=== PATIENT | female | born 1985 | race Caucasian/White ===

== ENCOUNTER 2017-02-28 23:41 | Emergency (ER) | payer MEDICARE ==
[~2017-02-28] VITALS: Ht 177.8 cm; Wt 70.5 kg
[~2017-02-28 23:41] MED LIST: CIPR500T4 PO; LORTA5 PO; SERO200T PO; TRAZ50TA4 PO; Z.0.BCPILL PO
[2017-02-28 23:42] VITALS: BP 161/69; PULSE 114; RESP 16; TEMP 98.8; O2SAT 98
[2017-03-01] MEDS ORDERED: TRAZ1TAB45 PO (00:10)
[2017-03-01] MEDS ORDERED: ALPR1TAB3 PO (00:10)
[2017-03-01] MEDS ORDERED: SERO400T PO (00:10)
[2017-03-01] MEDS ORDERED: MOBI15TA PO (00:39)
[2017-03-01] MEDS ORDERED: CLIN1CAP5 PO (00:39)
[2017-03-01] MEDS ORDERED: BACT800T5 PO (00:39)
[2017-03-01] MEDS ORDERED: MUPIROCIN TOPICAL (00:40)
--- NOTE | 2017-03-01 00:41 | PD ---
HPI Chief Complaint: Skin Problem Time Seen by Provider: 00:27 Travel History International Travel<30 days: No Contact w/Intl Traveler<30days: No Traveled to known affect area: No History of Present Illness HPI 31-year-old female complains of infected lesions on the right arm and right hand and the chin. Patient states that the symptoms started several days ago. Patient states that she has recurrent infection several times in the past several months. Patient denies any history IV drug abuse. Patient denies any fever chills. Patient states that the redness is increased on the lesions on the right forearm. Patient states that she has some drainage from the right wrist area. Patient is not up-to-date with TD booster. PFSH Past Medical History Hx Anticoagulant Therapy: No Bipolar Disorder: Yes Anxiety: Yes Depression: Yes Cardiovascular Problems: No Chemotherapy: No Cerebrovascular Accident: No Diabetes: No Patient Takes Glucophage: No Diminished Hearing: No Genitourinary: Yes (frequent UTI's) Respiratory: No Immunizations Current: Yes Tetanus Vaccination: > 5 Years Influenza Vaccination: No ?: Not LMP: 02/02/17 Social History Alcohol Use: Yes (occ) Tobacco Use: Yes (1/2 PPD) Substance Use: Yes Allergies-Medications (Allergen,Severity, Reaction): Coded Allergies: No Known Allergies (Unverified , 03/01/17) Reported Meds & Prescriptions Reported Meds & Active Scripts Active [Bactroban Oinment] 1 Applic TOPICAL BID Mobic (Meloxicam) 15 Mg Tab 15 Mg PO DAILY Clindamycin (Clindamycin HCl) 150 Mg Cap 2 Tab PO Q6H Bactrim DS (Sulfamethoxazole-Trimethoprim) 800-160 Mg Tab 1 Tab PO BID Reported Seroquel (Quetiapine Fumarate) 400 Mg Tab 400 Mg PO HS Alprazolam 1 Mg Tab 1 Mg PO Q6H PRN Trazodone (Trazodone HCl) 150 Mg Tablet 150 Mg PO HS Review of Systems General / Constitutional: No: Fever Eyes: No: Visual changes HENT: No: Headaches Cardiovascular: No: Chest Pain or Discomfort Respiratory: No: Shortness of Breath Gastrointestinal: No: Abdominal Pain Genitourinary: No: Dysuria Musculoskeletal: No: Pain Skin: No Rash Neurologic: No: Weakness Psychiatric: No: Depression Endocrine: No: Polydipsia Hematologic/Lymphatic: No: Easy Bruising Physical Exam Narrative GENERAL: Well-nourished, well-developed patient. SKIN: Focused skin assessment warm/dry. HEAD: Normocephalic. EYES: No scleral icterus. No injection or drainage. NECK: Supple, trachea midline. No JVD or lymphadenopathy. CARDIOVASCULAR: Regular rate and rhythm without murmurs, gallops, or rubs. RESPIRATORY: Breath sounds equal bilaterally. No accessory muscle use. GASTROINTESTINAL: Abdomen soft, non-tender, nondistended. MUSCULOSKELETAL: No cyanosis, or edema. BACK: Nontender without obvious deformity. No CVA tenderness. Patient had multiple crusted lesions on the right hand and right forearm. Patient has a crusted lesion on her chin. Patient has redness swelling and some mild discharge from the lesion on the right wrist. Data Data Last Documented VS Vital Signs Date Time Temp Pulse Resp B/P Pulse Ox O2 Delivery O2 Flow Rate FiO2 02/28/17 23:42 98.8 114 16 161/69 98 Room Air Orders Tetanus/Diphtheria Tox Adult (Tetanus/Di (03/01/17 00:45) Clindamycin Inj (Cleocin Inj) (03/01/17 00:45) Wound Culture And Gram Stain (03/01/17 00:42) MDM Medical Decision Making Medical Screen Exam Complete: Yes Emergency Medical Condition: Yes Differential Diagnosis Differential diagnosis including cellulitis, abscess. Narrative Course 31-year-old female with infected lesions and cellulitis on the right hand and right forearm. TD booster given. Clindamycin 600 mg IM. Diagnosis Primary Impression: Cellulitis Qualified Code: L03.113 - Cellulitis of right upper extremity Patient Instructions: General Instructions Additional Instructions: Take medications as directed. Soap water wash lesions daily. Follow-up with local physician. Return if worse. Med/Other Pt SpecificInfo: Prescription(s) given Scripts [Bactroban Oinment] No Conflict Check1 Applic TOPICAL BID #1 Prov:Simone Klein MD 03/01/17 Meloxicam (Mobic)15 Mg Tab15 Mg PO DAILY #20 TAB Prov:Simone Klein MD 03/01/17 Clindamycin 150 Mg Cap2 Tab PO Q6H #80 CAP Prov:Simone Klein MD 03/01/17 Sulfamethoxazole-Trimethoprim (Bactrim DS)800-160 Mg Tab1 Tab PO BID #20 TAB Prov:Simone Klein MD 03/01/17 Disposition: 01 DISCHARGE HOME Condition: Stable Simone Klein MD Mar 01, 2017 00:41
[2017-03-01] MEDS ORDERED: CLINDAMYCIN PHOS 600 MG/4 ML VIAL IM ONE (00:45)
[2017-03-01] MEDS ORDERED: TETANUS/DIPHTHERIA TOXOID ADULT 0.5 ML VIAL IM ONE (00:45)
== END 2017-03-01 01:49 | disposition home or self-care (01) ==
LOC: NEPC 23:41
DX: L03.113 Cellulitis of right upper limb (principal); B95.62 Methicillin resistant Staphylococcus aureus infection as the cause of diseases classified elsewhere; F17.200 Nicotine dependence, unspecified, uncomplicated; Z23 Encounter for immunization
CPT/HCPCS: 86403; 87070; 87186; 90471; 90714; 96372

== ENCOUNTER 2017-09-22 01:23 | Emergency (ER) | payer MEDICARE, OTHER ==
[~2017-09-22] VITALS: Ht 177.8 cm; Wt 63.6 kg
[~2017-09-22 01:23] MED LIST changes: +ALPR1TAB3 PO; +BACT800T5 PO; -CIPR500T4 PO; +CLIN150C14 PO; -LORTA5 PO; +MOBI15TA PO; +MUPIROCIN TOPICAL; -SERO200T PO; +SERO400T PO; +TRAZ1TAB14 PO; -TRAZ50TA4 PO; -Z.0.BCPILL PO
[2017-09-22 01:34] VITALS: BP 110/62; PULSE 105; RESP 20; TEMP 99.2; O2SAT 98
[2017-09-22] MEDS ORDERED: BACT800T5 PO (02:18)
--- NOTE | 2017-09-22 02:25 | PD ---
HPI Chief Complaint: Psychiatric Symptoms Time Seen by Provider: 01:56 Travel History International Travel<30 days: No Contact w/Intl Traveler<30days: No Traveled to known affect area: No History of Present Illness HPI 32-year-old white female with history IV drug abuse presents to emergency department are [facility]. Patient was found sleeping in the bathroom of a restaurant with IV drug paraphernalia around her. The patient had been injecting IV heroin. The patient was brought to the ER for evaluation. The patient here is alert now. She admits to substance abuse. She denies any medical complaints other than pain in her left great toe which she sustained from stepping on something earlier today. She has not had a tetanus shot over 5 years. She denies any toxic ingestions. She denies any suicidal homicidal ideation. PFSH Past Medical History Narrative Medical Anxiety, depression, IV drug abuse Hx Anticoagulant Therapy: No Bipolar Disorder: Yes Anxiety: Yes Depression: Yes Cardiovascular Problems: No Chemotherapy: No Cerebrovascular Accident: No Diabetes: No Diminished Hearing: No Genitourinary: Yes (frequent UTI's) Psychiatric: Yes Respiratory: No Immunizations Current: Yes Tetanus Vaccination: > 5 Years Influenza Vaccination: No ?: Not LMP: 6 months ago Past Surgical History Surgical History: No Previous Surgery Social History Alcohol Use: Yes (occ) Tobacco Use: Yes (1/2 PPD) Substance Use: Yes (opiates and cocaine) Allergies-Medications (Allergen,Severity, Reaction): Coded Allergies: *MDRO Multi-Drug Resistant Organism (Verified Adverse Reaction, Unknown, ) MRSA (am) 03/01/17 Reported Meds & Prescriptions Reported Meds & Active Scripts Active Bactrim DS (Sulfamethoxazole-Trimethoprim) 800-160 Mg Tab 1 Tab PO BID [Bactroban Oinment] 1 Applic TOPICAL BID Mobic (Meloxicam) 15 Mg Tab 15 Mg PO DAILY Clindamycin (Clindamycin HCl) 150 Mg Cap 2 Tab PO Q6H Bactrim DS (Sulfamethoxazole-Trimethoprim) 800-160 Mg Tab 1 Tab PO BID Reported Seroquel (Quetiapine Fumarate) 400 Mg Tab 400 Mg PO HS Alprazolam 1 Mg Tab 1 Mg PO Q6H PRN Trazodone (Trazodone HCl) 150 Mg Tablet 150 Mg PO HS Review of Systems Except as stated in HPI: all other systems reviewed are Neg Musculoskeletal: Positive: Pain (left great toe) Skin: Positive Rash Psychiatric: Positive: Anxiety, Depression, Substance Abuse, No: Suicidal Ideations, Disorder of Thought, Mood Disorder, Homicidal Ideation Physical Exam Narrative GENERAL: Well-nourished, well-developed patient. SKIN: Warm and dry. Patient has multiple sores from picking on her face, extremities and trunk. Positive track rodriguez. Patient has a abrasion with some swelling to the left great toe over pad. No abscess. HEAD: Normocephalic and atraumatic. EYES: No scleral icterus. No injection or drainage. ENT: No nasal drainage noted. Mucous membranes pink. Airway patent. NECK: Supple, trachea midline. Moves head freely without obvious discomfort. CARDIOVASCULAR: Regular rate and rhythm without murmurs, gallops, or rubs. RESPIRATORY: Breath sounds equal bilaterally. No accessory muscle use. GASTROINTESTINAL: Abdomen soft, non-tender, nondistended. EXTREMITIES: No cyanosis or edema. BACK: Nontender without obvious deformity. No CVA tenderness. NEURO: Patient is alert and oriented. no sensorimotor deficits. Nonfocal. Normal speech. PSYCH: No delusions. No auditory or visual hallucinations. Data Data Last Documented VS Vital Signs Date Time Temp Pulse Resp B/P (MAP) Pulse Ox O2 Delivery O2 Flow Rate FiO2 09/22/17 01:34 99.2 105 20 110/62 (78) 98 Orders Orders Tetanus/Diphtheria Tox Adult (Tetanus/Di (09/22/17 02:30) Sulfamet-Trimeth Ds 800-160 Mg (Bactrim (09/22/17 02:30) MDM Medical Decision Making Medical Screen Exam Complete: Yes Emergency Medical Condition: Yes Medical Record Reviewed: Yes Differential Diagnosis Differential diagnoses: Alcohol intoxication, substance abuse, electrolyte abnormality, malingering Narrative Course Patient's tetanus status updated. Patient is given Bactrim DS by mouth. Her wound is cleansed and dressed. The patient is been medically cleared. The patient will be discharged at 6:30 this morning. She is eating sirena crackers and drinking juice. This is drug abuse, left great toe abrasion Diagnosis Primary Impression: IV drug abuse Additional Impression: left great toe contusion Patient Instructions: General Instructions Additional Instructions: Rest. Increase fluids. Bactrim DS. Avoid alcohol. Avoid illegal substances. Follow-up with [facility] for detox. Do not operate a car or any heavy machinery under the influence of alcohol or drugs. Follow-up with a medical doctor this week. Return to the ER for emergencies Med/Other Pt SpecificInfo: Prescription(s) given, Wound Care Scripts Sulfamethoxazole-Trimethoprim (Bactrim DS) 800-160 Mg Tab 1 TAB PO BID for Infection, #20 TAB 0 Refills Prov: Anastasia Sullivan MD 09/22/17 Disposition: 01 DISCHARGE HOME Condition: Stable Sanchez Quesada Sep 22, 2017 02:25
[2017-09-22] MEDS ORDERED: SULFAMETHOXAZOLE-TRIMETHOPRIM DS 800-160 MG TAB PO ONE (02:30)
[2017-09-22] MEDS ORDERED: TETANUS/DIPHTHERIA TOXOID ADULT 0.5 ML VIAL IM ONE (02:30)
== END 2017-09-22 06:55 | disposition home or self-care (01) ==
LOC: NEPD 01:23
DX: F11.10 Opioid abuse, uncomplicated (principal); S90.112A Contusion of left great toe without damage to nail, initial encounter; F31.9 Bipolar disorder, unspecified; F17.210 Nicotine dependence, cigarettes, uncomplicated; Z23 Encounter for immunization
CPT/HCPCS: 90471; 90714

== ENCOUNTER 2017-10-19 23:41 | Observation (INO) | payer MEDICARE, OTHER ==
[~2017-10-19] VITALS: Ht 177.8 cm; Wt 70.0 kg
[2017-10-20 00:45] VITALS: BP 148/88; PULSE 114; RESP 18; TEMP 101; O2SAT 95
[2017-10-20] MEDS ORDERED: ACETAMINOPHEN 325 MG TAB PO ONE (09:30)
[2017-10-20] MEDS ORDERED: LIDOCAINE HCL 1% 50 ML VIAL INFIL ONE (09:30)
[2017-10-20] MEDS ORDERED: KETOROLAC TROMETHAMINE 30 MG/ML (IVP) VIAL IVP ONE (09:30)
[2017-10-20] MEDS ORDERED: CLINDAMYCIN INJ 600 MG in SODIUM CHLORIDE 0.9% INJ 100 ML IV ONE (09:30)
[2017-10-20] MEDS ORDERED: SODIUM CHLOR 0.9% 1000 ML INJ 1,000 ML IV ONE (09:30)
--- NOTE | 2017-10-20 09:36 | PD ---
HPI Chief Complaint: Skin Problem Time Seen by Provider: 09:12 Travel History International Travel<30 days: No Contact w/Intl Traveler<30days: No Traveled to known affect area: No History of Present Illness HPI 32yo F with PMH of anxiety, depression, IVDA here with complaints of multiple skin infections. Pt said he has a boil in right armpit for 1 week. Said it had drained before but now it wont stop draining. Pt also with redness and pain to left elbow for 2 days. Denies any trauma. Said she last injected heroin yesterday and it was in her wrist. Pt has multiple scabs on her skin. + Fever today. Denies any chest pain, sob, n/v, abdominal pain, focal weakness or numbness. PFSH Past Medical History Hx Anticoagulant Therapy: No Bipolar Disorder: Yes Anxiety: Yes Depression: Yes Cardiovascular Problems: No Chemotherapy: No Cerebrovascular Accident: No Diabetes: No Diminished Hearing: No Genitourinary: Yes (frequent UTI's) Psychiatric: Yes Respiratory: No Immunizations Current: Yes Tetanus Vaccination: < 5 Years Influenza Vaccination: No ?: Unknown LMP: pt states unsure but not having a period Social History Alcohol Use: Yes (occ) Tobacco Use: Yes (1/2 PPD) Substance Use: Yes (opiates and cocaine) Allergies-Medications (Allergen,Severity, Reaction): Coded Allergies: *MDRO Multi-Drug Resistant Organism (Verified Adverse Reaction, Unknown, ) MRSA (am) 03/01/17 Reported Meds & Prescriptions Reported Meds & Active Scripts Active Bactrim DS (Sulfamethoxazole-Trimethoprim) 800-160 Mg Tab 1 Tab PO BID [Bactroban Oinment] 1 Applic TOPICAL BID Mobic (Meloxicam) 15 Mg Tab 15 Mg PO DAILY Clindamycin (Clindamycin HCl) 150 Mg Cap 2 Tab PO Q6H Bactrim DS (Sulfamethoxazole-Trimethoprim) 800-160 Mg Tab 1 Tab PO BID Reported Seroquel (Quetiapine Fumarate) 400 Mg Tab 400 Mg PO HS Alprazolam 1 Mg Tab 1 Mg PO Q6H PRN Trazodone (Trazodone HCl) 150 Mg Tablet 150 Mg PO HS Review of Systems Except as stated in HPI: all other systems reviewed are Neg Physical Exam Narrative GENERAL: 32yo F in mild distress. SKIN: Multiple skin scabs on face, arms, feet. +Abscess right axilla. + Cellulitis in left elbow. HEAD: Atraumatic. Normocephalic. EYES: Pupils equal and round. No scleral icterus. No injection or drainage. ENT: No nasal bleeding or discharge. Mucous membranes pink and moist. NECK: Trachea midline. No JVD. CARDIOVASCULAR: Regular rate and rhythm. No murmur appreciated. RESPIRATORY: No accessory muscle use. Clear to auscultation. Breath sounds equal bilaterally. GASTROINTESTINAL: Abdomen soft, non-tender, nondistended. Hepatic and splenic margins not palpable. MUSCULOSKELETAL: Left elbow: FROM. +Erythema 6cm by 3cm over left elbow. + Black scab in center with no fluctuance. Radial pulse 2+. Right axilla: +5cm by 2cm abscess with fluctuance. NEUROLOGICAL: Awake and alert. No obvious cranial nerve deficits. Motor grossly within normal limits in all extremities. Sensation intact. Normal speech. PSYCHIATRIC: Labile. Intermittent crying and yelling. Data Data Last Documented VS Vital Signs Date Time Temp Pulse Resp B/P (MAP) Pulse Ox O2 Delivery O2 Flow Rate FiO2 10/20/17 11:08 89 17 101/56 (71) 100 Room Air 10/20/17 00:45 101.0 Orders Orders Basic Metabolic Panel (Bmp) (10/20/17 09:24) Complete Blood Count With Diff (10/20/17 09:24) Blood Culture (10/20/17 09:24) Ketorolac Inj (Toradol Inj) (10/20/17 09:30) Clindamycin Inj (Cleocin Inj) (10/20/17 09:30) Lactic Acid Sepsis Protocol (10/20/17 09:24) Sodium Chlor 0.9% 1000 Ml Inj (Ns 1000 M (10/20/17 09:30) Acetaminophen (Tylenol) (10/20/17 09:30) Alcohol (Ethanol) (10/20/17 09:24) Lidocaine 1% Inj (Xylocaine 1% Inj) (10/20/17 09:45) Lorazepam Inj (Ativan Inj) (10/20/17 10:45) Drug Screen, Random Urine (10/20/17 10:59) Consult Psychiatry (10/20/17 ) Labs Laboratory Tests Test 10/20/17 09:30 White Blood Count 11.2 TH/MM3 Red Blood Count 3.68 MIL/MM3 Hemoglobin 10.8 GM/DL Hematocrit 32.5 % Mean Corpuscular Volume 88.3 FL Mean Corpuscular Hemoglobin 29.5 PG Mean Corpuscular Hemoglobin Concent 33.4 % Red Cell Distribution Width 15.3 % Platelet Count 439 TH/MM3 Mean Platelet Volume 7.1 FL Neutrophils (%) (Auto) 61.4 % Lymphocytes (%) (Auto) 26.6 % Monocytes (%) (Auto) 10.3 % Eosinophils (%) (Auto) 1.0 % Basophils (%) (Auto) 0.7 % Neutrophils # (Auto) 6.8 TH/MM3 Lymphocytes # (Auto) 3.0 TH/MM3 Monocytes # (Auto) 1.1 TH/MM3 Eosinophils # (Auto) 0.1 TH/MM3 Basophils # (Auto) 0.1 TH/MM3 CBC Comment DIFF FINAL Differential Comment Blood Urea Nitrogen 7 MG/DL Creatinine 0.89 MG/DL Random Glucose 120 MG/DL Calcium Level 8.4 MG/DL Sodium Level 136 MEQ/L Potassium Level 3.5 MEQ/L Chloride Level 99 MEQ/L Carbon Dioxide Level 30.8 MEQ/L Anion Gap 6 MEQ/L Estimat Glomerular Filtration Rate 73 ML/MIN Lactic Acid Level 0.7 mmol/L Ethyl Alcohol Level LESS THAN 3 MG/DL MDM Medical Decision Making Medical Screen Exam Complete: Yes Emergency Medical Condition: Yes Differential Diagnosis Abscess vs. cellulitis vs. hidradenitis suppurativa vs. anxiety vs. depression Narrative Course 32yo F who is an IVDA here with fever, infection of left elbow and right axilla. Pt has multiple scabs on her face and said she has been squeezing them. She said her right axilla drained but stopped and it is fluctuant. I attempted to I&D her right axilla but no purulent discharge was drained. Pt was in triage for a prolong amount of time and her temperature was 101F and tachycardic at 114bpm. Pt did meet SIRS criteria and has a source of infection so meets sepsis criteria. Blood cultures, labs including lactic acid was drawn. Labs reviewed, WBC 11.2. H/H low at 10.8/32.5 but this is around her baseline. Lactic acid normal at 0.7. Alcohol negative. Pt has a history of MRSA and covered with clindamycin IV and given acetaminophen for fever. Pt given NS IVF. Pt is very anxious and given ativan 1mg IV. She also states she wants to kill herself and is suicidal. Pt is high risk with active IVDA so will admit to medicine with psych consult. Procedures Procedure Narrative INCISION AND DRAINAGE OF ABSCESS: The area was prepped and was sterilely draped. A subcutaneous wheal of 1 % Xylocaine with a total number 2 mL was used to anesthetize the area properly. A number 11 scalpel was used to make 2 1-cm incision across the area of the abscess. There was no purulent discharge. Half inch iodoform packing was placed in the wound. Sterile dressing applied. Patient advised to have packing removed in two days. Sepsis Criteria SIRS Criteria (2 or more): Temp > 100.9 or < 96.8, Heart rate over 90 Sepsis Criteria (SIRS+source): Infect source susp/known Diagnosis Primary Impression: Sepsis affecting skin Admitting Information Admitting Physician Requests: Paige Gage DO Oct 20, 2017 09:36
[2017-10-20] MEDS ORDERED: LIDOCAINE HCL 1% 20 ML VIAL INFIL ONE (09:45)
[2017-10-20 10:36] LABS: AUTOMATED NEUTROPHIL # 6.8 TH/MM3 (1.8-7.7); BASOPHIL # 0.1 TH/MM3 (0-0.2); BASOPHIL % 0.7 % (0.0-2.0); EOSINOPHIL # 0.1 TH/MM3 (0-0.4); HEMATOCRIT 32.5 % (35.0-46.0); HEMOGLOBIN 10.8 GM/DL (11.6-15.3); LYMPH % 26.6 % (9.0-44.0); MEAN CELL VOLUME 88.3 FL (80.0-100.0); MEAN CORPUSCULAR HEMOGLOBIN 29.5 PG (27.0-34.0); MEAN CORPUSCULAR HGB CONC 33.4 % (32.0-36.0); MEAN PLATELET VOLUME 7.1 FL (7.0-11.0); MONO % 10.3 % (0.0-8.0); MONOCYTE # 1.1 TH/MM3 (0-0.9); NEUT % 61.4 % (16.0-70.0); PLATELET COUNT 439 TH/MM3 (150-450); RED BLOOD COUNT 3.68 MIL/MM3 (4.00-5.30); RED CELL DISTRIBUTION WIDTH 15.3 % (11.6-17.2); WHITE BLOOD COUNT 11.2 TH/MM3 (4.0-11.0)
[2017-10-20] MEDS ORDERED: LORazepam 2 MG/ML VIAL IV PUSH ONE (10:45)
[2017-10-20 10:49] LABS: BICARBONATE 30.8 MEQ/L (21.0-32.0); BLOOD UREA NITROGEN 7 MG/DL (7-18); CALCIUM 8.4 MG/DL (8.5-10.1); CHLORIDE 99 MEQ/L (98-107); CREATININE 0.89 MG/DL (0.50-1.00); GLOMERULAR FILTRATION RATE 73 ML/MIN (>89); GLUCOSE,RANDOM 120 MG/DL (74-106); SODIUM (NA) 136 MEQ/L (136-145)
[2017-10-20 11:08] VITALS: BP 101/56; PULSE 89; RESP 17; O2SAT 100
[2017-10-20] MEDS ORDERED: NALOXONE HCL 0.4 MG/ML AMP IV PUSH PRN (13:00)
[2017-10-20] MEDS ORDERED: FLUMAZENIL 0.5 MG/5 ML VIAL IV PUSH PRN (13:00)
[2017-10-20] MEDS ORDERED: MAGNESIUM HYDROXIDE SUSP 30 ML CUP PO PRN (13:00)
[2017-10-20] MEDS ORDERED: LORazepam 2 MG TAB PO PRN (13:00)
[2017-10-20] MEDS ORDERED: LORazepam 1 MG TAB PO PRN (13:00)
[2017-10-20] MEDS ORDERED: SENNOSIDES 8.6 MG TAB PO PRN (13:00)
[2017-10-20] MEDS ORDERED: ONDANSETRON HCL 4 MG/2 ML VIAL IVP PRN (13:00)
[2017-10-20] MEDS ORDERED: SODIUM CHLORIDE 0.9% FLUSH 10 ML FLUSH IV FLUSH PRN (13:00)
[2017-10-20] MEDS ORDERED: ACETAMINOPHEN 325 MG TAB PO PRN (13:00)
[2017-10-20] MEDS ORDERED: BISACODYL 10 MG SUPP RECTAL PRN (13:00)
[2017-10-20] MEDS ORDERED: LORazepam 2 MG/ML VIAL IV PUSH PRN ×4 (13:00)
--- NOTE | 2017-10-20 14:02 | HHI.HP ---
[facility] Primary Care Physician No Primary Care Physician Admission Diagnosis Sepsis secondary to skin infection in IVDA Diagnoses: (1) Cellulitis (2) IV drug abuse (3) Sepsis affecting skin Travel History International Travel<30 Days: No Contact w/Intl Traveler <30 Da: No Traveled to Known Affected Are: No History of Present Illness 32-year-old female with a history of IV drug use presents to the ER with cellulitis in her left elbow and right axilla. She is a poor historian due to her disheveled state and intermittent sleepiness. She has been having subjective fevers on and off for the last week. They have become worse in the last 2 days. The infected areas of her left elbow and right axilla have given her a great deal of pain. Incision and drainage of the right axilla in the ER produces little pus, but mostly just blood. The wound was packed with iodoform. She denies any other health conditions, however she is an unreliable historian due to her state. When speaking with the ER physician earlier she stated that she wanted to kill herself. Psychiatry was consulted by the ER. Her last heroin usage was yesterday, patient should be monitored for signs of withdrawal. Alcohol level was negative on admission. Review of Systems ROS Limitations: Clinical Condition, Uncooperative, Refused, Poor Historian Constitutional: COMPLAINS OF: Fever, Chills Eyes: DENIES: Eye pain, Vision loss Respiratory: DENIES: Cough, Wheezing Cardiovascular: DENIES: Chest pain, Syncope, Lower Extremity Edema Neurologic: DENIES: Abnormal gait, Headache, Localized weakness, Seizures Psychiatric: COMPLAINS OF: Confusion, Depression, Agitation, Suicidal Ideation Past Family Social History Past Medical History Patient denies any major medical issues (poor historian) Past Surgical History Patient denies any surgery Allergies: Coded Allergies: *MDRO Multi-Drug Resistant Organism (Verified Adverse Reaction, Unknown, ) MRSA (am) 03/01/17 Family History Patient is an unreliable historian and cannot relay a family history at this time Social History IV drug use (heroin) Patient did not answer whether or not she uses cigarettes or alcohol Physical Exam Vital Signs Vital Signs Date Time Temp Pulse Resp B/P (MAP) Pulse Ox O2 Delivery O2 Flow Rate FiO2 10/20/17 11:08 89 17 101/56 (71) 100 Room Air 10/20/17 00:45 101.0 114 18 148/88 (108) 95 Physical Exam GENERAL: Disheveled female, restless, unhealthy-appearing SKIN: Track rodriguez on bilateral arms, 0.5-1 cm scabs overlying face,arms, and legs. 6 x 6 cm area of cellulitis surrounding central sore on left elbow laterally. Right axillary abscess under bandage with packing of iodoform. HEAD: Atraumatic. Normocephalic. No temporal or scalp tenderness. EYES: Pupils equal round and reactive. Extraocular motions intact. No scleral icterus. No injection or drainage. ENT: Nose without bleeding, purulent drainage or septal hematoma. Throat without erythema, tonsillar hypertrophy or exudate. Uvula midline. Airway patent. NECK: Trachea midline. No JVD or lymphadenopathy. Supple, nontender, no meningeal signs. CARDIOVASCULAR: Regular rate and rhythm without murmurs, gallops, or rubs. RESPIRATORY: Clear to auscultation. Breath sounds equal bilaterally. No wheezes , rales, or rhonchi. GASTROINTESTINAL: Abdomen soft, non-tender, nondistended. No hepato-splenomegaly , or palpable masses. No guarding. MUSCULOSKELETAL: Extremities without clubbing, cyanosis, or edema. No joint tenderness, effusion, or edema noted. NEUROLOGICAL: Awake and alert. Cranial nerves II through XII intact. Motor and sensory grossly within normal limits. Five out of 5 muscle strength in all muscle groups. Normal speech. PSYCH: Intermittent sleepiness, disheveled appearance, evidence of IV drug use, suicidal ideation (per ER physician) Laboratory Laboratory Tests Test 10/20/17 09:30 10/20/17 11:15 White Blood Count 11.2 Red Blood Count 3.68 Hemoglobin 10.8 Hematocrit 32.5 Mean Corpuscular Volume 88.3 Mean Corpuscular Hemoglobin 29.5 Mean Corpuscular Hemoglobin Concent 33.4 Red Cell Distribution Width 15.3 Platelet Count 439 Mean Platelet Volume 7.1 Neutrophils (%) (Auto) 61.4 Lymphocytes (%) (Auto) 26.6 Monocytes (%) (Auto) 10.3 Eosinophils (%) (Auto) 1.0 Basophils (%) (Auto) 0.7 Neutrophils # (Auto) 6.8 Lymphocytes # (Auto) 3.0 Monocytes # (Auto) 1.1 Eosinophils # (Auto) 0.1 Basophils # (Auto) 0.1 CBC Comment DIFF FINAL Differential Comment Blood Urea Nitrogen 7 Creatinine 0.89 Random Glucose 120 Calcium Level 8.4 Sodium Level 136 Potassium Level 3.5 Chloride Level 99 Carbon Dioxide Level 30.8 Anion Gap 6 Estimat Glomerular Filtration Rate 73 Lactic Acid Level 0.7 Ethyl Alcohol Level LESS THAN 3 Urine Opiates Screen POS Urine Barbiturates Screen NEG Urine Amphetamines Screen NEG Urine Benzodiazepines Screen NEG Urine Cocaine Screen POS Urine Cannabinoids Screen NEG Date/Time Source Procedure Growth Status 10/20/17 09:45 Blood Peripheral Aerobic Blood Culture Pending Received 10/20/17 09:45 Blood Peripheral Anaerobic Blood Culture Pending Received Result Diagram: 10/20/1792910/20/17929 Septic Shock Reassessment Septic shock perfusion: reassessment completed Caprini VTE Risk Assessment Caprini VTE Risk Assessment: Mod/High Risk (score >= 2) Caprini Risk Assessment Model Point Value = 1 Point Value = 2 Point Value = 3 Point Value = 5 Age 41-60 Minor surgery BMI > 25 kg/m2 Swollen legs Varicose veins or History of unexplained or recurrent spontaneous Oral contraceptives or hormone replacement Sepsis (< 1 month) Serious lung disease, including pneumonia (< 1 month) Abnormal pulmonary function Acute myocardial infarction Congestive heart failure (< 1 month) History of inflammatory bowel disease Medical patient at bed rest Age 61-74 Arthroscopic surgery Major open surgery (> 45 min) Laparoscopic surgery (> 45 min) Malignancy Confined to bed (> 72 hours) Immobilizing plaster cast Central venous access Age >= 75 History of VTE Family history of VTE Factor V Leiden Prothrombin [id number] Lupus anticoagulant Anticardiolipin antibodies Elevated serum homocysteine Heparin-induced thrombocytopenia Other congenital or acquired thrombophilia Stroke (< 1 month) Elective arthroplasty Hip, pelvis, or leg fracture Acute spinal cord injury (< 1 month) Prophylaxis Regimen Total Risk Factor Score Risk Level Prophylaxis Regimen 0-1 Low Early ambulation 2 Moderate Order ONE of the following: *Sequential Compression Device (SCD) *Heparin 5000 units SQ BID 3-4 Higher Order ONE of the following medications: *Heparin 5000 units SQ TID *Enoxaparin/Lovenox 40 mg SQ daily (WT < 150 kg, CrCl > 30 mL/min) *Enoxaparin/Lovenox 30 mg SQ daily (WT < 150 kg, CrCl > 10-29 mL/min) *Enoxaparin/Lovenox 30 mg SQ BID (WT < 150 kg, CrCl > 30 mL/min) AND/OR *Sequential Compression Device (SCD) 5 or more Highest Order ONE of the following medications: *Heparin 5000 units SQ TID (Preferred with Epidurals) *Enoxaparin/Lovenox 40 mg SQ daily (WT < 150 kg, CrCl > 30 mL/min) *Enoxaparin/Lovenox 30 mg SQ daily (WT < 150 kg, CrCl > 10-29 mL/min) *Enoxaparin/Lovenox 30 mg SQ BID (WT < 150 kg, CrCl > 30 mL/min) AND *Sequential Compression Device (SCD) Assessment and Plan Problem List: (1) Cellulitis ICD Code: L03.90 - Cellulitis, unspecified Status: Acute (2) IV drug abuse ICD Code: F19.10 - Other psychoactive substance abuse, uncomplicated Status: Acute (3) Sepsis affecting skin ICD Code: A41.9 - Sepsis, unspecified organism Status: Acute Assessment and Plan Cellulitis left elbow and right axilla Continue with IV clindamycin Monitor for signs of SIRS, expect clearance with treatment Incision and drainage of right axillary abscess performed in the ER on 10/20/17, iodoform packing to remain in 2 days Origin of abscesses is likely from IV drug use, consider MRSA IV drug use (heroin) Last use was 10/19/2017, monitor for signs of withdrawal Morphine 2 mg every 4 hours for signs of pain and/or withdrawal Depression with suicidal ideation Patient told the ER physician that she was having suicidal thoughts Psychiatry consulted Polysubstance abuse Patient is an unreliable historian, consider alcohol abuse CIWA precautions ordered DVT prophylaxis Mikal Warner MD Oct 20, 2017 2:02 pm
[2017-10-20] MEDS: ENOXAPARIN SODIUM 40 MG/0.4 ML SYRINGE SQ SCH (15:00)
[2017-10-20 15:36] VITALS: BP 94/53; PULSE 86; RESP 16; TEMP 98.2; O2SAT 99
[2017-10-20] MEDS: CLINDAMYCIN 600 MG/NS PREMIX 50 ML IV SCH (20:19)
[2017-10-20] MEDS: SODIUM CHLORIDE 0.9% FLUSH 10 ML FLUSH IV FLUSH SCH (20:20)
[2017-10-20] MEDS: MORPHINE SULFATE 2 MG/ML INJ IV PUSH PRN (20:20)
[2017-10-20 20:24] VITALS: BP 103/58; PULSE 14; RESP 14; TEMP 98; O2SAT 98
[2017-10-21] MEDS: CLINDAMYCIN 600 MG/NS PREMIX 50 ML IV SCH ×2 (01:47→10:06)
[2017-10-21] MEDS: MORPHINE SULFATE 2 MG/ML INJ IV PUSH PRN ×5 (02:31→21:57)
[2017-10-21 04:13] VITALS: BP 110/70; PULSE 84; RESP 14; TEMP 97.8; O2SAT 96
[2017-10-21 07:29] LABS: AUTOMATED NEUTROPHIL # 2.9 TH/MM3 (1.8-7.7); BASOPHIL # 0.1 TH/MM3 (0-0.2); BASOPHIL % 0.9 % (0.0-2.0); EOSINOPHIL # 0.1 TH/MM3 (0-0.4); EOSINOPHIL % 1.7 % (0.0-4.0); HEMATOCRIT 37.7 % (35.0-46.0); HEMOGLOBIN 12.5 GM/DL (11.6-15.3); LYMPH % 42.9 % (9.0-44.0); LYMPHOCYTE # 2.8 TH/MM3 (1.0-4.8); MEAN CELL VOLUME 90.3 FL (80.0-100.0); MEAN CORPUSCULAR HEMOGLOBIN 29.9 PG (27.0-34.0); MEAN CORPUSCULAR HGB CONC 33.2 % (32.0-36.0); MEAN PLATELET VOLUME 8.3 FL (7.0-11.0); MONO % 10.6 % (0.0-8.0); MONOCYTE # 0.7 TH/MM3 (0-0.9); NEUT % 43.9 % (16.0-70.0); PLATELET COUNT 396 TH/MM3 (150-450); RED BLOOD COUNT 4.18 MIL/MM3 (4.00-5.30); RED CELL DISTRIBUTION WIDTH 15.5 % (11.6-17.2); WHITE BLOOD COUNT 6.6 TH/MM3 (4.0-11.0)
[2017-10-21 07:50] VITALS: BP 106/65; PULSE 84; RESP 16; TEMP 97.3; O2SAT 99
[2017-10-21 08:20] LABS: BICARBONATE 26.6 MEQ/L (21.0-32.0); CALCIUM 8.8 MG/DL (8.5-10.1); CREATININE 0.83 MG/DL (0.50-1.00)
[2017-10-21] MEDS: SODIUM CHLORIDE 0.9% FLUSH 10 ML FLUSH IV FLUSH SCH ×2 (08:57→21:58)
[2017-10-21] MEDS ORDERED: ACETAMINOPHEN/HYDROcodone 325 MG/5 MG TAB PO PRN (09:00)
--- NOTE | 2017-10-21 09:10 | HHI.PR ---
Subjective Remarks Pt complaining of pain. States that her wounds are the same w no improvement. She denies any nausea or vomiting, chills or fevers. denies any CP/SOB Objective Vitals Vital Signs Date Time Temp Pulse Resp B/P (MAP) Pulse Ox O2 Delivery O2 Flow Rate FiO2 10/21/17 07:50 97.3 84 16 106/65 (79) 99 10/21/17 04:13 97.8 84 14 110/70 (83) 96 10/20/17 20:24 98.0 14 14 103/58 (73) 98 10/20/17 15:36 98.2 86 16 94/53 (67) 99 10/20/17 14:50 10/20/17 11:08 89 17 101/56 (71) 100 Room Air I/O 10/20/17 10/20/17 10/20/17 10/21/17 10/21/17 10/21/17 07:00 15:00 23:00 07:00 15:00 23:00 Intake Total 1104 ml Balance 1104 ml Intake IV Total 1104 ml Result Diagram: 10/21/17 0611 10/21/17 0611 Objective Remarks GENERAL: Disheveled female, restless, unhealthy-appearing SKIN: Track rodriguez on bilateral arms, 0.5-1 cm scabs overlying face,arms, and legs. 6 x 6 cm area of cellulitis surrounding central sore on left elbow laterally, non draining, w scab,tender to touch. Right axillary wound with packing of iodoform, non draining, tender to touch. CARDIOVASCULAR: Regular rate and rhythm without murmurs RESPIRATORY: Clear to auscultation. Breath sounds equal bilaterally. No wheezes GASTROINTESTINAL: Abdomen soft, non-tender, nondistended. No guarding. MUSCULOSKELETAL: Extremities without edema. NEUROLOGICAL: Awake and alert. Cranial nerves II through XII intact. Motor and sensory grossly within normal limits. Normal speech. PSYCH: awake, disheveled appearance A/P Problem List: (1) Cellulitis ICD Code: L03.90 - Cellulitis, unspecified Status: Acute (2) IV drug abuse ICD Code: F19.10 - Other psychoactive substance abuse, uncomplicated Status: Acute (3) Sepsis affecting skin ICD Code: A41.9 - Sepsis, unspecified organism Status: Acute Assessment and Plan Cellulitis left elbow and right axilla Continue with IV clindamycin Monitor for signs of SIRS, no improvement thus far per patient. Area still very erythematous and tender to touch Incision and drainage of right axillary abscess performed in the ER on 10/20/17, iodoform packing to remain in 2 days. Per ED notes there was no pus therefore no wound cultures were obtained. Origin of abscesses is likely from IV drug use, consider MRSA ID consult placed. Appreciate recs IV drug use (heroin) Last use was 10/19/2017, monitor for signs of withdrawal Morphine 2 mg every 3 hours for signs of breakthrough pain and/or withdrawal however will add po norco prn. Depression with suicidal ideation Patient told the ER physician that she was having suicidal thoughts Psychiatry consulted Polysubstance abuse Patient is an unreliable historian, consider alcohol abuse CIWA precautions ordered Discharge Planning ID and psych consults pending. Awaiting recs. Continue current management. Ailyn Tran MD Oct 21, 2017 09:10
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
[2017-10-21 11:13] VITALS: BP 106/60; PULSE 86; RESP 16; TEMP 97.9; O2SAT 99
[2017-10-21] MEDS ORDERED: hydrOXYzine HCL 50 MG TAB PO PRN (11:15)
[2017-10-21] MEDS: ACETAMINOPHEN/HYDROcodone 325 MG/7.5 MG TAB PO PRN ×3 (11:26→20:00)
[2017-10-21] MEDS: ENOXAPARIN SODIUM 40 MG/0.4 ML SYRINGE SQ SCH (13:40)
[2017-10-21 15:49] VITALS: BP 105/60; PULSE 88; RESP 18; TEMP 97.8; O2SAT 96
[2017-10-21] MEDS ORDERED: CLINDAMYCIN INJ 600 MG in SODIUM CHLORIDE 0.9% INJ 50 ML IV SCH (18:00)
[2017-10-21 19:44] VITALS: BP 107/55; PULSE 85; RESP 20; TEMP 98.4; O2SAT 99
--- NOTE | 2017-10-21 19:50 | PD.ID.CON ---
History of Present Illness Service ID Consult Requested By Dr Julien Reason for Consult skin abscess Primary Care Physician No Primary Care Physician Diagnoses: History of Present Illness 32 yo female with active IVDU, heroine presented with 1 -2 weeks of painful skin lesion, scattered, most prominent R axilla and L proximal forearm She endorses fever up to 102 She is sp b/d I+D of her R axillae drainage she was started on IV clindamyicn but cont to experince fever Foreamr lesion is getting more painful On admission fever 101, WBC 11K Review of Systems Except as stated in HPI: all other systems reviewed are Neg Past Family Social History Allergies: Coded Allergies: *MDRO Multi-Drug Resistant Organism (Verified Adverse Reaction, Unknown, ) MRSA (am) 03/01/17 Past Medical History IVDU skin abscesses Past Surgical History I+Ds of skin abscesses Active Ordered Medications Medications where reviewed in EMR Antibiotics Include: clindamycin Family History reviewed non contributory to current ID issue Social History No Tobacco. No ETOH. IVDU Physical Exam Vital Signs Vital Signs Date Time Temp Pulse Resp B/P (MAP) Pulse Ox O2 Delivery O2 Flow Rate FiO2 10/21/17 15:49 97.8 88 18 105/60 (75) 96 10/21/17 11:13 97.9 86 16 106/60 (75) 99 10/21/17 07:50 97.3 84 16 106/65 (79) 99 10/21/17 04:13 97.8 84 14 110/70 (83) 96 10/20/17 20:24 98.0 14 14 103/58 (73) 98 Physical Exam CONSTITUTIONAL/GENERAL: This is an adequately nourished patient, in no apparent distress. TUBES/LINES/DRAINS: SKIN: No jaundice, Multipler lesions, most dry and crusted L proximal forearm with learge fluctuant lesion surrounded by erythematous rim very tender to palpation R axillae incision is packed with serosang drainage on packing . Skin temperature appropriate. Not diaphoretic. HEAD: Atraumatic. Normocephalic. EYES: Pupils equal and round and reactive. Extraocular motions intact. No scleral icterus. No injection or drainage. Fundi not examined. ENT: Hearing grossly normal. Nose without bleeding or purulent drainage. Throat without visible erythema, exudates, masses, or lesions. NECK: Trachea midline. Supple, nontender. CARDIOVASCULAR: Regular rate and rhythm without murmurs, gallops, or rubs. No JVD. Peripheral pulses symmetric. RESPIRATORY/CHEST: Symmetric, unlabored respirations. Clear to auscultation. Breath sounds equal bilaterally. No wheezes, rales, or rhonchi. GASTROINTESTINAL: Abdomen soft, non-tender, nondistended. No hepato-splenomegaly , or palpable masses. No guarding. Bowel sounds present. MUSCULOSKELETAL: Extremities without clubbing, cyanosis, or edema. No joint tenderness or effusion noted. No calf tenderness. No mottling or clubbing. LYMPHATICS: No palpable cervical or supraclavicular adenopathy. + b/l NEUROLOGICAL: Awake and alert. Motor and sensory grossly within normal limits. Follows commands. Clear speech . Moves all extremities. PSYCHIATRIC: No obvious anxiety/depression. no apparent hallucinations or other psychotic thought process. Laboratory Laboratory Tests Test 10/21/17 06:11 White Blood Count 6.6 Red Blood Count 4.18 Hemoglobin 12.5 Hematocrit 37.7 Mean Corpuscular Volume 90.3 Mean Corpuscular Hemoglobin 29.9 Mean Corpuscular Hemoglobin Concent 33.2 Red Cell Distribution Width 15.5 Platelet Count 396 Mean Platelet Volume 8.3 Neutrophils (%) (Auto) 43.9 Lymphocytes (%) (Auto) 42.9 Monocytes (%) (Auto) 10.6 Eosinophils (%) (Auto) 1.7 Basophils (%) (Auto) 0.9 Neutrophils # (Auto) 2.9 Lymphocytes # (Auto) 2.8 Monocytes # (Auto) 0.7 Eosinophils # (Auto) 0.1 Basophils # (Auto) 0.1 CBC Comment AUTO DIFF Differential Comment AUTO DIFF CONFIRMED Platelet Estimate NORMAL Platelet Morphology Comment Blood Urea Nitrogen 7 Creatinine 0.83 Random Glucose 93 Calcium Level 8.8 Sodium Level 141 Potassium Level 4.3 Chloride Level 108 Carbon Dioxide Level 26.6 Anion Gap 6 Estimat Glomerular Filtration Rate 79 Date/Time Source Procedure Growth Status 10/20/17 09:45 Blood Peripheral Aerobic Blood Culture - Preliminary NO GROWTH IN 1 DAY Resulted 10/20/17 09:45 Blood Peripheral Anaerobic Blood Culture - Preliminary NO GROWTH IN 1 DAY Resulted Result Diagram: 10/21/1711 10/21/1711 Assessment and Plan Assessment and Plan IVDU Multiple skin lesions L forearm abscess - neesd I+D R aaxillae abscess - sp I+D HIV status negative per pt about 1-2 yrs ago - 2 D echo Hand sx consult dc clindamyic q start vancomycin will repeat HIV test (pty was counselled and verbally agreed to it) Taylor Rose MD Oct 21, 2017 19:50
[2017-10-21] MEDS ORDERED: Vancomycin Consult Pharmacy 1 EA OTHER SCH (20:00)
[2017-10-21] MEDS: VANCOMYCIN INJ 1,250 MG in SODIUM CHLOR 0.9% 250 ML INJ 250 ML IV SCH (21:00)
--- NOTE | 2017-10-21 22:27 | MB ---
cc: Paulo Murphy MD DATE: 10/21/2017 REASON FOR CONSULTATION: I was called as a second consult for the patient's left forearm as another service refused to see it. HISTORY OF PRESENT ILLNESS: The patient is a 32-year-old right-hand dominant female who was admitted yesterday. She had a draining wound in her right axilla as well as some pain and redness to the left elbow of 2-3 days duration. She states she did not inject anything into her left forearm. PAST MEDICAL HISTORY: Bipolar disorder, anxiety, depression, IV drug abuse, frequent urinary tract infections. She was seen by psychiatry and was felt to not require inpatient psychiatric admission due to possible suicidal ideations. She had incision and drainage by Dr. Llanes in the emergency room yesterday in her right axilla. She had been seen by infectious disease and for the left proximal forearm infection and I was called after that. PAST SURGICAL HISTORY: Includes several I and Ds of skin abscesses. MEDICATIONS: The patient denies any medications at home. In the hospital she has been ordered vancomycin. She has received [place], Lovenox and clindamycin. No radiologic studies have been done. LABORATORY DATA: Laboratory studies revealed white blood cell count yesterday of 11.2 thousand down to 6.6 thousand. Microbiology: It does not appear that any cultures were obtained from the right axilla. PHYSICAL EXAMINATION: GENERAL: She is well-developed, well-nourished, in no apparent distress, lying comfortably in her bed in the emergency room. VITAL SIGNS: Temperature is 98.4, heart rate 85, blood pressure 107/55, pulse oximetry 99% on room air. NEUROLOGIC: She is awake, alert and oriented x 3. LUNGS: Respiratory effort is normal. HEENT: Normocephalic, atraumatic. SKIN: Normal temperature, but she has multiple scabs and multiple healing wounds and multiple scars, especially on her face. EXTREMITIES: Examination of the left upper extremity reveals full active range of motion. The area of concern is a small 1.5 cm eschar that is flat and nonfluctuant deep to it and has a surrounding rim of 2-3 cm of cellulitis/erythema. There is no abscess. There is no epitrochlear adenopathy. There is no streaking. There is nothing to drain. IMPRESSION: Left forearm superficial wounds/eschar without abscess/cellulitis. RECOMMENDATIONS: Would recommend elevation of the limb, IV vancomycin. I will order Bactroban ointment for the wound, as well as elevation status. I have also recommend the patient wash and dry and scrub that area 5-6 times a day, but there is no surgical intervention needed. Please recall as needed. MD TIFFANIE Heck/rt , 09:59 PM , 10:26 PM
[2017-10-21 22:54] VITALS: BP 112/58; PULSE 20; RESP 20; TEMP 98.2; O2SAT 99
[2017-10-22] MEDS: ACETAMINOPHEN/HYDROcodone 325 MG/7.5 MG TAB PO PRN ×5 (00:10→19:54)
[2017-10-22] MEDS: MORPHINE SULFATE 2 MG/ML INJ IV PUSH PRN ×6 (02:23→21:53)
[2017-10-22] MEDS: MUPIROCIN 2% OINT 22 GM TUBE TOPICAL SCH ×3 (04:17→21:54)
[2017-10-22 05:08] VITALS: BP 111/69; PULSE 79; RESP 20; TEMP 98.7; O2SAT 99
[2017-10-22] MEDS: VANCOMYCIN INJ 1,250 MG in SODIUM CHLOR 0.9% 250 ML INJ 250 ML IV SCH ×3 (06:12→21:54)
[2017-10-22 08:17] VITALS: BP 116/62; PULSE 78; RESP 20; TEMP 97.8; O2SAT 98
[2017-10-22] MEDS: SODIUM CHLORIDE 0.9% FLUSH 10 ML FLUSH IV FLUSH SCH ×2 (08:59→21:55)
[2017-10-22 09:47] LABS: AUTOMATED NEUTROPHIL # 3.5 TH/MM3 (1.8-7.7); BASOPHIL # 0.1 TH/MM3 (0-0.2); BASOPHIL % 0.9 % (0.0-2.0); EOSINOPHIL # 0.1 TH/MM3 (0-0.4); EOSINOPHIL % 0.9 % (0.0-4.0); HEMATOCRIT 34.5 % (35.0-46.0); HEMOGLOBIN 11.4 GM/DL (11.6-15.3); LYMPH % 44.9 % (9.0-44.0); LYMPHOCYTE # 3.3 TH/MM3 (1.0-4.8); MEAN CELL VOLUME 89.3 FL (80.0-100.0); MEAN CORPUSCULAR HEMOGLOBIN 29.5 PG (27.0-34.0); MEAN PLATELET VOLUME 7.5 FL (7.0-11.0); MONOCYTE # 0.4 TH/MM3 (0-0.9); NEUT % 47.3 % (16.0-70.0); PLATELET COUNT 411 TH/MM3 (150-450); RED BLOOD COUNT 3.86 MIL/MM3 (4.00-5.30); RED CELL DISTRIBUTION WIDTH 15.2 % (11.6-17.2); WHITE BLOOD COUNT 7.4 TH/MM3 (4.0-11.0)
--- NOTE | 2017-10-22 09:50 | HHI.PR ---
Subjective Remarks Patient seen earlier. States she does not feel too well. Still has pain. Has been trying to elevate the left upper extremity. Denies any chest pain, shortness of breath, admits to mild nausea but no vomiting. Objective Vitals Vital Signs Date Time Temp Pulse Resp B/P (MAP) Pulse Ox O2 Delivery O2 Flow Rate FiO2 10/22/17 08:17 97.8 78 20 116/62 (80) 98 10/22/17 06:22 18 10/22/17 05:24 18 10/22/17 05:08 98.7 79 20 111/69 (83) 99 10/21/17 22:54 98.2 20 20 112/58 (76) 99 10/21/17 19:44 98.4 85 20 107/55 (72) 99 10/21/17 15:49 97.8 88 18 105/60 (75) 96 10/21/17 11:13 97.9 86 16 106/60 (75) 99 I/O 10/21/17 10/21/17 10/21/17 10/22/17 10/22/17 10/22/17 07:00 15:00 23:00 07:00 15:00 23:00 Intake Total 50 ml 54 ml 250 ml Balance 50 ml 54 ml 250 ml Intake IV Total 50 ml 54 ml 250 ml Result Diagram: 10/21/1761010/21/17610 Objective Remarks GENERAL: Disheveled female, restless, unhealthy-appearing SKIN: Track rodriguez on bilateral arms, 0.5-1 cm scabs overlying face,arms, and legs. Wound on the left elbow laterally, non draining, w scab,tender to touch. Right axillary open wound, non draining, tender to touch. CARDIOVASCULAR: Regular rate and rhythm without murmurs RESPIRATORY: Clear to auscultation. Breath sounds equal bilaterally. No wheezes GASTROINTESTINAL: Abdomen soft, non-tender, nondistended. No guarding. MUSCULOSKELETAL: Extremities without edema. NEUROLOGICAL: Awake and alert.Normal speech. PSYCH: awake, disheveled appearance A/P Problem List: (1) Cellulitis ICD Code: L03.90 - Cellulitis, unspecified Status: Acute (2) IV drug abuse ICD Code: F19.10 - Other psychoactive substance abuse, uncomplicated Status: Acute (3) Sepsis affecting skin ICD Code: A41.9 - Sepsis, unspecified organism Status: Acute Assessment and Plan Cellulitis left elbow and right axilla Infectious disease following. Has DC'd clindamycin, started IV vancomycin. Monitor creatinine levels. Incision and drainage of right axillary abscess performed in the ER on 10/20/17. Per ED notes there was no pus therefore no wound cultures were obtained. Origin of abscesses is likely from IV drug use, consider MRSA Hand surgeon evaluated the patient, recommended Bactroban ointment, elevation, washing/scrubbing/drying area 5-6 times daily IV drug use (heroin) Last use was 10/19/2017, monitor for signs of withdrawal Morphine 2 mg every 3 hours for signs of breakthrough pain and/or withdrawal and po norco prn. Depression with suicidal ideation Patient told the ER physician that she was having suicidal thoughts Psychiatry evaluated the patient, at this time she does not meet inpatient criteria for psych. Hydroxyzine p.o. as needed was ordered for anxiety Polysubstance abuse Patient is an unreliable historian, consider alcohol abuse CIWA precautions ordered Discharge Planning Continue IV vancomycin. Blood cultures negative 1 day. Follow-up cultures until final. Awaiting final recommendations from infectious disease. Ailyn Tran MD Oct 22, 2017 09:50
[2017-10-22 10:03] LABS: BICARBONATE 26.3 MEQ/L (21.0-32.0); CALCIUM 8.6 MG/DL (8.5-10.1); CREATININE 0.83 MG/DL (0.50-1.00)
[2017-10-22 12:26] VITALS: BP 120/60; PULSE 60; RESP 20; TEMP 98.2; O2SAT 98
[2017-10-22 15:33] VITALS: BP 122/62; PULSE 62; RESP 20; O2SAT 96
[2017-10-22] MEDS: ENOXAPARIN SODIUM 40 MG/0.4 ML SYRINGE SQ SCH (15:45)
--- NOTE | 2017-10-22 19:34 | ECHRPT ---
Indication: Endocarditis CONCLUSIONS The left ventricular systolic function is normal with an estimated ejection fraction in the range of 55-60%. Trace mitral valve regurgitation. There is mild tricuspid valve regurgitation. BP: 111 / 69 HR: 79 Rhythm: Sinus MEASUREMENTS (Male / Female) Normal Values Technical Quality:Fair DOPPLER TR Peak Velocity 303.0 cm/s TR Peak Gradient 36.7 mmHg Right Atrial Pressure 10.0 mmHg Pulmonary Artery Systolic Pressu 46.7 mmHg Right Ventricular Systolic Press 46.7 mmHg FINDINGS LEFT VENTRICLE Normal left ventricular size. Wall thickness is normal. The left ventricular systolic function is normal with an estimated ejection fraction in the range of 55-60%. No regional wall motion abnormalities are present. RIGHT VENTRICLE The right ventricular size is normal. The right ventricular systoilc function is normal. LEFT ATRIUM The left atrial size is normal. RIGHT ATRIUM The right atrial size is normal. ATRIAL SEPTUM Normal atrial septal thickness. AORTA The aortic root and proximal ascending aorta are normal in size on limited imaging. MITRAL VALVE Structurally normal mitral valve. No mitral valve stenosis. Trace mitral valve regurgitation. AORTIC VALVE Trileaflet aortic valve. No aortic valve regurgitation. No aortic valve stenosis. TRICUSPID VALVE Structurally normal tricuspid valve. There is mild tricuspid valve regurgitation. The estimated pulmonary arterial pressure is 47 mmHg. PULMONARY VALVE Grossly normal No pulmonary valve regurgitation. PERICARDIUM There is no pericardial effusion. Oscar Gutierrez DO (Electronically Signed) Final Date:22 October 2017 19:34
[2017-10-22 20:31] VITALS: BP 114/79; PULSE 66; RESP 18; TEMP 98.2; O2SAT 100
[2017-10-22] MEDS ORDERED: PHARMACY ORDERED LAB ONE (20:45)
[2017-10-22 23:54] VITALS: BP 120/78; PULSE 75; RESP 17; TEMP 98.1; O2SAT 98
[2017-10-23] MEDS: ACETAMINOPHEN/HYDROcodone 325 MG/7.5 MG TAB PO PRN ×3 (01:00→10:37)
[2017-10-23] MEDS: MORPHINE SULFATE 2 MG/ML INJ IV PUSH PRN ×3 (01:35→08:51)
[2017-10-23 04:06] VITALS: BP 127/72; PULSE 67; RESP 17; TEMP 98.2
[2017-10-23] MEDS: VANCOMYCIN INJ 1,250 MG in SODIUM CHLOR 0.9% 250 ML INJ 250 ML IV SCH (05:29)
[2017-10-23 07:46] VITALS: BP 116/69; PULSE 61; RESP 16; TEMP 97.8; O2SAT 100
[2017-10-23] MEDS: MUPIROCIN 2% OINT 22 GM TUBE TOPICAL SCH (08:50)
[2017-10-23] MEDS: SODIUM CHLORIDE 0.9% FLUSH 10 ML FLUSH IV FLUSH SCH (08:50)
--- NOTE | 2017-10-23 09:34 | HHI.PR ---
Subjective Remarks Pt states that she feels better today. still has pain in the left upper extremity and that "it burst open". denies any nausea or vomiting, tolerating a diet. Objective Vitals Vital Signs Date Time Temp Pulse Resp B/P (MAP) Pulse Ox O2 Delivery O2 Flow Rate FiO2 10/23/17 07:46 97.8 61 16 116/69 (85) 100 10/23/17 05:44 18 10/23/17 05:44 18 10/23/17 04:06 98.2 67 17 127/72 (90) 10/22/17 23:54 98.1 75 17 120/78 (92) 98 10/22/17 20:31 98.2 66 18 114/79 (91) 100 10/22/17 15:33 62 20 122/62 (82) 96 10/22/17 12:26 98.2 60 20 120/60 (80) 98 I/O 10/22/17 10/22/17 10/22/17 10/23/17 10/23/17 10/23/17 07:00 15:00 23:00 07:00 15:00 23:00 Intake Total 510 ml Balance 510 ml Intake IV Total 510 ml Result Diagram: 10/22/17 0850 10/22/17 0850 Objective Remarks GENERAL: Disheveled female, restless, unhealthy-appearing SKIN: Track rodriguez on bilateral arms, 0.5-1 cm scabs overlying face,arms, and legs. Wound on the left elbow laterally, non draining, w scab, erythema is improving. Right axillary open wound, non draining, less tender to touch, less erythematous. CARDIOVASCULAR: Regular rate and rhythm without murmurs RESPIRATORY: Clear to auscultation. Breath sounds equal bilaterally. No wheezes GASTROINTESTINAL: Abdomen soft, non-tender, nondistended. No guarding. MUSCULOSKELETAL: Extremities without edema. walking in room A/P Problem List: (1) Cellulitis ICD Code: L03.90 - Cellulitis, unspecified Status: Acute (2) IV drug abuse ICD Code: F19.10 - Other psychoactive substance abuse, uncomplicated Status: Acute (3) Sepsis affecting skin ICD Code: A41.9 - Sepsis, unspecified organism Status: Acute Assessment and Plan Cellulitis left elbow and right axilla Infectious disease following. Has DC'd clindamycin, on IV vancomycin. Monitor creatinine levels. Incision and drainage of right axillary abscess performed in the ER on 10/20/17. Per ED notes there was no pus therefore no wound cultures were obtained. Origin of abscesses is likely from IV drug use, consider MRSA Hand surgeon evaluated the patient, recommended Bactroban ointment, elevation, washing/scrubbing/drying area 5-6 times daily IV drug use (heroin) Last use was 10/19/2017, monitor for signs of withdrawal Morphine 2 mg every 3 hours for signs of breakthrough pain and/or withdrawal and po norco prn. encourage only use of po pain meds. Depression with suicidal ideation Patient told the ER physician that she was having suicidal thoughts Psychiatry evaluated the patient, at this time she does not meet inpatient criteria for psych. Hydroxyzine p.o. as needed was ordered for anxiety Polysubstance abuse Patient is an unreliable historian, consider alcohol abuse CIWA precautions ordered Discharge Planning Continue IV vancomycin. Blood cultures negative 2 days. Awaiting final recommendations from infectious disease. Ailyn Tran MD Oct 23, 2017 09:34
[2017-10-23 11:13] VITALS: BP 108/56; PULSE 73; RESP 16; TEMP 98.1; O2SAT 99
[2017-10-23 11:22] LABS: CREATININE 0.87 MG/DL (0.50-1.00)
[2017-10-23] MEDS ORDERED: CEPH-460 PO (11:56)
[2017-10-23] MEDS ORDERED: DOXY100C PO (11:56)
[2017-10-23] MEDS ORDERED: HYDR50TA94 PO (11:56)
[2017-10-23] MEDS ORDERED: HYDR-3516 PO (11:56)
--- NOTE | 2017-10-23 11:58 | HHI.DS ---
Discharge Summary Admission Date Oct 20, 2017 at 11:55 Discharge Date: Oct 23, 2017 Admitting Diagnosis Sepsis secondary to skin infection in IVDA (1) Cellulitis ICD Code: L03.90 - Cellulitis, unspecified Status: Acute (2) IV drug abuse ICD Code: F19.10 - Other psychoactive substance abuse, uncomplicated Status: Acute (3) Sepsis affecting skin ICD Code: A41.9 - Sepsis, unspecified organism Status: Acute Procedures none Brief History - From Admission 32-year-old female with a history of IV drug use presents to the ER with cellulitis in her left elbow and right axilla. She is a poor historian due to her disheveled state and intermittent sleepiness. She has been having subjective fevers on and off for the last week. They have become worse in the last 2 days. The infected areas of her left elbow and right axilla have given her a great deal of pain. Incision and drainage of the right axilla in the ER produces little pus, but mostly just blood. The wound was packed with iodoform. She denies any other health conditions, however she is an unreliable historian due to her state. When speaking with the ER physician earlier she stated that she wanted to kill herself. Psychiatry was consulted by the ER. Her last heroin usage was yesterday, patient should be monitored for signs of withdrawal. Alcohol level was negative on admission. CBC/BMP: 10/22/17 0850 10/23/17 0845 Significant Findings Laboratory Tests Test 10/21/17 06:11 10/22/17 08:50 10/22/17 21:30 10/23/17 08:45 Monocytes (%) (Auto) 10.6 % (0.0-8.0) Chloride Level 108 MEQ/L (98-107) 108 MEQ/L (98-107) Estimat Glomerular Filtration Rate 79 ML/MIN (>89) 79 ML/MIN (>89) 75 ML/MIN (>89) Red Blood Count 3.86 MIL/MM3 (4.00-5.30) Hemoglobin 11.4 GM/DL (11.6-15.3) Hematocrit 34.5 % (35.0-46.0) Lymphocytes (%) (Auto) 44.9 % (9.0-44.0) Vancomycin Level Trough 15.1 MCG/ML (5.0-10.0) PE at Discharge GENERAL: Disheveled female, restless, unhealthy-appearing SKIN: Track rodriguez on bilateral arms, 0.5-1 cm scabs overlying face,arms, and legs. Wound on the left elbow laterally, non draining, w scab, erythema is improving. Right axillary open wound, non draining, less tender to touch, less erythematous. CARDIOVASCULAR: Regular rate and rhythm without murmurs RESPIRATORY: Clear to auscultation. Breath sounds equal bilaterally. No wheezes GASTROINTESTINAL: Abdomen soft, non-tender, nondistended. No guarding. MUSCULOSKELETAL: Extremities without edema. walking in room Hospital Course Cellulitis left elbow and right axilla Infectious disease following. Has DC'd clindamycin, on IV vancomycin. Discussed w Dr. Rose and recommend discharging her on doxycycline 100mg po BID and keflex 500mg po q6h x 10-14 total. Incision and drainage of right axillary abscess performed in the ER on 10/20/17. Per ED notes there was no pus therefore no wound cultures were obtained. Origin of abscesses is likely from IV drug use, consider MRSA Hand surgeon evaluated the patient, recommended Bactroban ointment, elevation, washing/scrubbing/drying area 5-6 times daily Depression with suicidal ideation Patient told the ER physician that she was having suicidal thoughts Psychiatry evaluated the patient, at this time she does not meet inpatient criteria for psych. Hydroxyzine p.o. as needed was ordered for anxiety Pt Condition on Discharge: Stable Discharge Disposition: Discharge Home Discharge Time: > 30 minutes Discharge Instructions DIET: Follow Instructions for: As Tolerated, No Restrictions Activities you can perform: Regular-No Restrictions Follow up Referrals: PCP Follow-up - 1 Week New Medications: Cephalexin (Keflex) 500 Mg Capsule 500 MG PO Q6H for Infection, #48 CAP 0 Refills Doxycycline Hyclate (Doxycycline Hyclate) 100 Mg Cap 100 MG PO BID for Infection, #24 CAP 0 Refills Hydrocodone/Acetaminophen (Hydrocodone-Acetamin 5-325 mg) 5 Mg-325 Mg Tablet 1 TAB PO Q8HR PRN for PAIN SCALE 5 TO 10, #20 Hydroxyzine HCl (Hydroxyzine HCl) 50 Mg Tab 50 MG PO Q6H PRN for MOD - SEVERE ANXIETY/AGITATION, #10 TAB [Mupirocin 2% Oint] () 22 APPLIC/22 GM OINT 1 APPLIC TOPICAL Q12HR, #1 Continued Medications: Meloxicam (Mobic) 15 Mg Tab 15 MG PO DAILY for Pain, #20 TAB Quetiapine (Seroquel) 400 Mg Tab 400 MG PO HS, #30 TAB 0 Refills Trazodone (Trazodone) 150 Mg Tablet 150 MG PO HS for Control Depression, #30 TAB 0 Refills Discontinued Medications: Alprazolam (Alprazolam) 1 Mg Tab 1 MG PO Q6H PRN for ANXIETY, TAB 0 Refills Clindamycin (Clindamycin) 150 Mg Cap 2 TAB PO Q6H for Infection, #80 CAP Sulfamethoxazole-Trimethoprim (Bactrim DS) 800-160 Mg Tab 1 TAB PO BID for Infection, #20 TAB Sulfamethoxazole-Trimethoprim (Bactrim DS) 800-160 Mg Tab 1 TAB PO BID for Infection, #20 TAB 0 Refills Ailyn Tran MD Oct 23, 2017 11:58
[2017-10-23] MEDS ORDERED: Mupirocin 2% Oint TOPICAL (12:02)
[2017-10-25] MEDS ORDERED: PHARMACY ORDERED LAB ONE (04:45)
== END 2017-10-23 17:48 | disposition home or self-care (01) ==
LOC: NEPD 23:41 → INTOOBSV 10-20 11:55 → NEDA 10-20 11:55 → NEPGCP 10-20 14:33
PROVIDERS: ADMIT Hospitalist; ATTEND Hospitalist
DX: L02.92 Furuncle, unspecified (principal); L03.111 Cellulitis of right axilla; L03.114 Cellulitis of left upper limb; F19.10 Other psychoactive substance abuse, uncomplicated; F41.9 Anxiety disorder, unspecified; R50.9 Fever, unspecified; F31.9 Bipolar disorder, unspecified; Z87.440 Personal history of urinary (tract) infections; F17.210 Nicotine dependence, cigarettes, uncomplicated; Z79.899 Other long term (current) drug therapy; R00.0 Tachycardia, unspecified; Z86.14 Personal history of Methicillin resistant Staphylococcus aureus infection; R45.851 Suicidal ideations; A41.9 Sepsis, unspecified organism; F11.90 Opioid use, unspecified, uncomplicated; F14.90 Cocaine use, unspecified, uncomplicated; Z59.0 Homelessness; F43.10 Post-traumatic stress disorder, unspecified
CPT/HCPCS: 10061; 80048; 80202; 80307; 82565; 83605; 85025; 86703; 87040; 93308; 96365; 96366; 96367; 96372; 96375; 96376; 99285; G0378; J1650; J1885; J2060; J2270; J3370; J7030; J7050

== ENCOUNTER 2018-01-18 03:16 | Emergency (ER) | payer MEDICARE ==
[~2018-01-18] VITALS: Ht 177.8 cm; Wt 73.0 kg
[~2018-01-18 03:16] MED LIST changes: -ALPR1TAB3 PO; -BACT800T5 PO; +CEPH-460 PO; -CLIN150C14 PO; +DOXY100C PO; +HYDR-3516 PO; +HYDR50TA94 PO; +Mupirocin 2% Oint TOPICAL
[2018-01-18 03:28] VITALS: BP 119/73; PULSE 100; RESP 18; TEMP 97.9; O2SAT 100
--- NOTE | 2018-01-18 05:16 | PD ---
HPI Chief Complaint: Alcohol/Drug Intoxication Time Seen by Provider: 03:31 Travel History International Travel<30 days: No Contact w/Intl Traveler<30days: No Traveled to known affect area: No History of Present Illness HPI Patient is a 32-year-old female brought in by EMS due to heroin overdose. She admits to using heroin tonight. She says she has not used in a few months. She says she has never overdosed before. She denies feeling ill prior to using the heroin. She was found in an apartment breathing. She was given nasal Narcan by police and now is awake and alert. She has no complaints at this time. She denies fever chills. She denies chest pain or shortness of breath. She says she needs to catch a bus at 6 AM in order to get out of town and trying get clean again. Severity is mild. PFSH Past Medical History Hx Anticoagulant Therapy: No Bipolar Disorder: Yes Anxiety: Yes Depression: Yes Cardiovascular Problems: No Chemotherapy: No Cerebrovascular Accident: No Diabetes: No Diminished Hearing: No Genitourinary: Yes (frequent UTI's) Psychiatric: Yes Respiratory: No Immunizations Current: Yes ?: Not LMP: "A YEAR AND A HALF AGO" Social History Alcohol Use: Yes (occ) Tobacco Use: Yes (1/2 PPD) Substance Use: Yes (HEROIN, COCAINE, DILAUDID) Allergies-Medications (Allergen,Severity, Reaction): Coded Allergies: *MDRO Multi-Drug Resistant Organism (Verified Adverse Reaction, Unknown, ) MRSA (am) 03/01/17 Reported Meds & Prescriptions Reported Meds & Active Scripts Active [Mupirocin 2% Oint] 22 APPLIC/22 GM Oint 1 Applic TOPICAL Q12HR Keflex (Cephalexin) 500 Mg Capsule 500 Mg PO Q6H Doxycycline Hyclate 100 Mg Cap 100 Mg PO BID Hydroxyzine HCl 50 Mg Tab 50 Mg PO Q6H PRN Hydrocodone-Acetamin 5-325 mg (Hydrocodone/Acetaminophen) 5 Mg-325 Mg Tablet 1 Tab PO Q8HR PRN [Bactroban Oinment] 1 Applic TOPICAL BID Mobic (Meloxicam) 15 Mg Tab 15 Mg PO DAILY Reported Seroquel (Quetiapine Fumarate) 400 Mg Tab 400 Mg PO HS Trazodone (Trazodone HCl) 150 Mg Tablet 150 Mg PO HS Review of Systems Except as stated in HPI: all other systems reviewed are Neg General / Constitutional: No: Fever, Chills HENT: No: Headaches, Lightheadedness Cardiovascular: No: Chest Pain or Discomfort Respiratory: No: Shortness of Breath Gastrointestinal: No: Nausea, Vomiting Musculoskeletal: No: Myalgias, Edema Skin: No Change in Pigmentation Neurologic: No: Weakness, Dizziness Physical Exam Narrative GENERAL: Awake and alert, no acute distress. SKIN: Focused skin assessment warm/dry. Track rodriguez present on the arms. No signs of infection. HEAD: Atraumatic. Normocephalic. EYES: Pupils equal and round and reactive. No scleral icterus. ENT: Mucous membranes pink and moist. NECK: Trachea midline. No JVD. CARDIOVASCULAR: Regular rate and rhythm. No murmur appreciated. RESPIRATORY: No accessory muscle use. Clear to auscultation. Breath sounds equal bilaterally. GASTROINTESTINAL: Abdomen soft, non-tender, nondistended. MUSCULOSKELETAL: No obvious deformities. No clubbing. No cyanosis. No edema. NEUROLOGICAL: Awake and alert. No obvious cranial nerve deficits. Motor grossly within normal limits. Normal speech. PSYCHIATRIC: Appropriate mood and affect; insight and judgment normal. Data Data Last Documented VS Vital Signs Date Time Temp Pulse Resp B/P (MAP) Pulse Ox O2 Delivery O2 Flow Rate FiO2 01/18/18 03:28 97.9 100 18 119/73 (88) 100 MDM Medical Decision Making Medical Screen Exam Complete: Yes Emergency Medical Condition: Yes Medical Record Reviewed: Yes Differential Diagnosis Drug overdose versus intoxication versus dehydration Narrative Course Patient is a 32-year-old female who comes in after heroin overdose. She has no complaints at this time. She did receive nasal Narcan by police prior to arrival. She is refusing an IV at this time. She will be observed in the to make sure she does not become apneic again. Discharge when sober. Diagnosis Primary Impression: Opiate overdose Qualified Codes: T40.601A - Poisoning by unspecified narcotics, accidental ( unintentional), initial encounter Patient Instructions: General Instructions, Narcotic Abuse (ED) Additional Instructions: Avoid using drugs. Follow-up with a primary care doctor. Return to the ED as needed for any worsening symptoms. Disposition: 01 DISCHARGE HOME Condition: Stable Mayra Mack MD Jan 18, 2018 05:16
[2018-01-18 09:26] VITALS: BP 99/58; PULSE 68; RESP 20; O2SAT 99
== END 2018-01-18 11:35 | disposition home or self-care (01) ==
LOC: NEPC 03:16
DX: T40.1X1A Poisoning by heroin, accidental (unintentional), initial encounter (principal); F31.9 Bipolar disorder, unspecified; F41.9 Anxiety disorder, unspecified; F17.200 Nicotine dependence, unspecified, uncomplicated; Z87.440 Personal history of urinary (tract) infections; Z79.899 Other long term (current) drug therapy
CPT/HCPCS: 99283